=== PATIENT | female | born 1970 | race African-American/Black ===

== ENCOUNTER 2020-09-01 10:32 | Emergency (ER) | payer OTHER ==
[~2020-09-01] VITALS: Ht 160 cm; Wt 74.8 kg
[~2020-09-01 10:32] MED LIST: AMITRIPTYLINE H50 M3 PO; DIOVAN40 MG; HYDROCODON-ACE1 EAC1 PO; IBUPROFEN 600600 M1 PO; IBUPROFEN 800800 MG PO; NORCO 5-325 TA1 EACH PO; NORVIR100 MG; PREZISTA75 MG; TRUVADA1 EAC1; UNKNOWN BP MED
[2020-09-01] MEDS ORDERED: PREDNISONE 20 M20 MG PO ×2 (12:32→12:54)
[2020-09-01] MEDS ORDERED: CYCLOBENZAPRINE5 MG PO ×2 (12:32→12:54)
[2020-09-01] MEDS ORDERED: ULTRAM 50MG TAB50 MG PO ×2 (12:41→12:55)
[2020-09-01 13:13] VITALS: BP 130/82
== END 2020-09-01 13:16 | disposition home or self-care (01) ==
LOC: ER 10:32
DX: M51.25 Other intervertebral disc displacement, thoracolumbar region (principal); I10 Essential (primary) hypertension; E11.9 Type 2 diabetes mellitus without complications; J45.909 Unspecified asthma, uncomplicated; Z21 Asymptomatic human immunodeficiency virus [HIV] infection status; Z79.899 Other long term (current) drug therapy; Z88.8 Allergy status to other drugs, medicaments and biological substances